=== PATIENT | female | born 1945 | race Two or more races ===

== ENCOUNTER 2024-03-09 15:19 | Emergency (ER) | payer MEDICARE, SELFPAY ==
[2024-03-09 15:26] VITALS: BP 93/66
--- NOTE | 2024-03-09 15:46 | ED.GENMED ---
History of Present Illness
General
Chief Complaint: Musculo-Skeletal Complaint
Source: patient
Exam Limitations: none
Time Seen by Provider: 03/09/24 15:41
Nursing documentation reviewed up to this point in time: agreed with
History of Present Illness
History of Present Illness:
78-year-old female with no past medical history presenting emergency department today with concerns of low back pain for the past week. Patient states that it started suddenly 1 day while she was standing in front of a mirror. She denies history
of falls. She states that the pain radiates into her hips but denies radiation of the pain to her legs. The pain is worse with walking. She has tried ibuprofen for the pain without relief. Patient denies any trauma to the area. Patient has never
had pain like this before. Patient denies any chest pain or shortness of breath associated with this. Patient denies any fevers or chills. Patient denies any difficulty walking or motor weakness. Patient denies any saddle paresthesias, urinary
incontinence, fecal incontinence, head ache, neck pain. Patient states that she does live alone but has a walker and a cane to help her ambulate. She states that she has no stairs in her home and that everything is on one floor.
Review of Systems
Review of Systems
All Other Systems: ROS reviewed and negative except as documented in HPI and ROS
Phy Exam
Physical Exam
Physical Exam:
General: Patient is well appearing and in no acute distress; non-toxic
Skin: Warm and dry, no rashes or lesions
Head: Normocephalic, atraumatic
Eyes: Sclera non-icteric. EOMs intact. PERRLA.
Cardiac: Regular rate
Pulm: Normal respiratory effort
Abdomen: No pulsatile abdominal mass
Musculoskeletal: Midline spinal and paraspinal lumbar tenderness. Negative straight leg raise.
Neuro: CN II-XII intact, no focal neurologic deficits. 5/5 strength in bilateral lower extremeties.
Psychiatric: Appropriate mood and affect.
Course
Orders/Labs/Results
Orders:
Orders
03/09/24 16:02
Acetaminophen [Tylenol] 1,000 mg PO NOW STA
CR Pelvis - 1 Or 2 Views Urgent
Comment:
Reason For Exam: low back pain radiating into hips
Lumbar Spine, 2 or 3 View [CR Lumbar Spine 2 Or 3 Views] Urgent
Comment:
Reason For Exam: low back pain
Vital Signs
Initial and Last Documented VS:
Initial Vital Signs
Temp Pulse Resp BP Pulse Ox
98.1 F 64 20 93/66 95
03/09/24 15:26 03/09/24 15:03/09/24 15:03/09/24 15:26 03/09/24 15:26
Last Documented Vital Signs
Temp Pulse Resp BP Pulse Ox
98.1 F 64 20 93/66 95
03/09/24 15:26 03/09/24 15:03/09/24 15:03/09/24 15:03/09/24 15:26
MDM/Problems Addressed
Differential Diagnosis Includes:
Differentials include musculoskeletal sprain/strain, osteoarthritis, osteoporosis, vertebral compression fracture, herniated nucleus pulposus
MDM/Problems Addressed:
78-year-old female presents to the emergency department today with low back pain. Patient states that this started a week ago with sharp pain, atraumatic. She has been seeing a chiropractor for the symptoms without relief. Patient states that her
pain has gotten worse since then. Patient denies any headache, fever, chills, weakness in her lower legs, urinary or fecal incontinence, saddle paresthesias. 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
endplate of L1 with near complete vertebral body collapse. This finding is congruent with patient's pain. Patient states that she does have pain with ambulating but is able to ambulate with a walker at home and states that every thing her home is
on 1 floor. I personally observed patient ambulate without any difficulties. She was stable. Patient states that she also has family to help her out at home. Patient stable for discharge. Stressed ortho follow up and return precautions.
Chronic conditions affecting care:
arthritis
Acute Exacerbation and/or Progression of Chronic Illness:
n/a
*Pulse Oximetry
Patient hypoxic: no
*Critical Care Note
Total Time (30-74mins, 75-104mins- exclusive of procedures): Not Applicable
Data Reviewed
Review of Other/Old Records Reveals: Records (No previous ER physician documentation to review ) and Discharge Summary (No discharge summary to review)
Source: patient and records
Prescriptions/Medications Considered But Not Given:
n/a
Further Testing Considered But Not Given:
n/a
Patient Management
Escalation/DeEscalation of care consider admission/obs:
Reviewed case with my attending Dr. Aguila. Patient stable for discharge.
ED Attending Note
-
Portions of this chart may have been created with voice recognition software.� Occasional wrong word or��sound alike� substitutions may have occurred due to the inherent limitations of voice recognition software.
Discharge Plan
Departure
Patient Disposition: Home (Routine Discharge)
Date of Disposition: 03/09/24
Time of Disposition: 17:12
Patient with high blood pressure during this ER visit?: No
Condition: Good
Discharge Problem:
Closed compression fracture of L1 vertebra
Instructions: Vertebral compression fracture, How to use a walker
Prescriptions:
New
oxycodone-acetaminophen [Percocet] 5-325 mg tablet
1 tab PO Q6HPRN PRN (Reason: pain) Qty: 8 0RF
Referrals:
Derik Peña DO [Family Provider] -
Mark Jade MD [Active] - Call in 1-3 days for appt
Activity Restrictions/Additional Instructions:
Percocet has been sent to your pharmacy. This medication contains Tylenol and Oxycodone. You can take this at 8 pm tonight. After 8 pm tonight, you can take it ever 6 hours as needed for pain. Do not take Tylenol while taking Percocet.
Percocet can cause constipation. Please take Miralax while using this medication.
You can alternate this with ibuprofen (Advil). You can take 200 mg ibuprofen orally every 4-6 hours as needed for pain.
It is important that you schedule an appointment to see orthopedist. Please call the attached number tomorrow morning to schedule appointment.
Please return emergency department should you fall, experience inability to ambulate, have chest pain, shortness of breath, fevers or chills, urinary or fecal incontinence, numbness or tingling in the genital region, or any other signs or symptoms
concerning to you.
Interventions
Interventions:
*Risk Screen - Suicide Last Done: 03/09/24 15:26
*General Assessment Last Done: 03/09/24 15:26
*Neglect/Abuse Screening Last Done: 03/09/24 15:26
*ED COVID-19 Vaccine History Last Done: 03/09/24 15:40
ED-Musculoskeletal Assessment Last Done: 03/09/24 15:40
Discharge Date and Time
Print Language: ROMANIAN
[2024-03-09] MEDS: TYLENOL 1000 MG PO (16:08)
[2024-03-09 19:08] VITALS: BP 159/75
== END 2024-03-09 18:09 | disposition home or self-care (01) ==
LOC: EMR 15:19
PROVIDERS: EMERGENCY PHYSICIAN Student in an Organized Health Care Education/Training Program; FAMILY PHYSICIAN Student in an Organized Health Care Education/Training Program
DX: M48.56XA Collapsed vertebra, not elsewhere classified, lumbar region, initial encounter for fracture (principal)
CPT/HCPCS: 99283; 72100; 72170